=== PATIENT | female | born 1995 | race Caucasian/White ===

== ENCOUNTER → 2021-02-22 | Outpatient (CLI) | payer BC ==
--- NOTE | 2021-02-22 18:09 | Diagnostic Imaging Report ---
INDICATION: patient, survey TECHNIQUE: Multiple real-time grayscale images were obtained over the gravid uterus. COMPARISON: None FINDINGS: A single live intrauterine fetus is seen measuring 22 weeks 1 day in size by composite measurements. Sonographic EDC is 06/27/2021. The fetus is in breech presentation at this time. Amniotic fluid appears qualitatively normal. Placenta is anterior with no evidence of previa. heart rate is 144 bpm. survey showed normal-appearing kidneys and bladder and stomach. Normal appearing intracranial ventricles were seen. Four-chamber heart view appear normal. Three-vessel cord and cord insertion appear normal. Views of the spine were unremarkable. Maternal adnexa could not be visualized. Biometrical measurements are as follows: Biparietal 4.95 cm, age 21 weeks 0 days. Head circumference 19.61 cm, age 21 weeks 6 days. Abdominal circumference 17.70 cm, age 22 weeks 5 days. Femur length 3.97 cm, age 22 weeks 6 days. Sonographic estimate age: 22 weeks 1 days. Sonographic estimated date of delivery: 06/27/2021. Estimated Weight: 511 gm (+/- 75 gm). LMP percentile: 89%. heart rate: 144 beats per minute. number: 1 of 1. IMPRESSION: Single live intrauterine fetus measuring 22 weeks 1 day in size as described above. There was no detectable abnormality. Dictated by: Dictated on workstation # [id number]
== END ==
LOC: RAD 15:01
PROVIDERS: ATTEND Obstetrics & Gynecology
DX: Z34.92 Encounter for supervision of normal pregnancy, unspecified, second trimester (principal); Z3A.22 22 weeks gestation of pregnancy
CPT/HCPCS: 76805

== ENCOUNTER → 2021-05-31 | Outpatient (CLI) | payer BC ==
--- NOTE | 2021-05-31 15:34 | Diagnostic Imaging Report ---
INDICATION: Evaluate growth. TECHNIQUE: Multiple real-time grayscale images were obtained over the gravid uterus. COMPARISON: 02/22/2021. FINDINGS: There is a single live fetus in a cephalic presentation. heart rate was recorded at 146 bpm. Placenta is anterior. Amniotic fluid index is 9.1 cm. A biophysical profile was performed. Profile score is normal at 8 out of 8. Biometrical measurements are as follows: Biparietal 9.35 cm, age 38 weeks 1 days. Head circumference 33.81 cm, age 38 weeks 6 days. Abdominal circumference 33.35 cm, age 37 weeks 2 days. Femur length 7.30 cm, age 37 weeks 3 days. Sonographic estimate age: 38 weeks 0 days. Sonographic estimated date of delivery: 06/14/2021. Estimated Weight: 3241 gm (+/- 473 gm). LMP percentile: 93%. heart rate: 146 beats per minute. number: 1 of 1. IMPRESSION: Single live IUP approximately 38 weeks gestational age, +/- 3 weeks. Biophysical profile score was normal at 8 out of 8. Dictated by: Dictated on workstation # [id number]
== END ==
LOC: RAD 14:15
PROVIDERS: ATTEND Obstetrics & Gynecology
DX: O36.5939 Maternal care for other known or suspected poor fetal growth, third trimester, other fetus (principal); Z3A.38 38 weeks gestation of pregnancy
CPT/HCPCS: 76805; 76819

== ENCOUNTER 2021-06-30 02:33 | Inpatient (IN) | payer BC ==
[~2021-06-30] VITALS: Ht 177 cm; Wt 95.0 kg
--- OUTSIDE RECORDS SUMMARY | 2021-06-30 19:46 | XMS REPORT | Clinical Summary ---
Author Author [facility] Organization [facility] Address Unknown Phone Unavailable Care Team Providers Care Family Nurse Practitioner Name Role Phone Pcp, Not Found [employer] PCP Allergies Not on File Medications Not on file Active Problems Not on file Encounters Not on filefrom Last 3 Months Immunizations Not on file Social History Date Tobacco Use Types Packs/Day Years Used Never Assessed Sex Assigned at Date Recorded Not on file Last Filed Vital Signs Not on file Plan of Treatment Health Maintenance Due Date Last Done Comments Cervical Cancer: 2015 Screening Goals Not on file Implants Not on file Procedures Not on filefrom Last 3 Months Results Not on filefrom Last 3 Months Additional Health Concerns Not on file Insurance Type Payer Benefit Subscriber ID Effective Phone Address Plan / Dates Group [place] [id number] 2020-P [place] ro[place] Care Teams Start Date End Date Family Nurse Practitioner Relationship Specialty 11/06/20 Pcp, Not Found, [employer] PCP - General Family Medicine
[2021-06-30] MEDS ORDERED: LACTATED RINGERS 1,000 ML IV ONE (20:10)
[2021-06-30] MEDS ORDERED: LACTATED RINGERS 1,000 ML IV SCH (20:15)
[2021-06-30] MEDS ORDERED: ZOLPIDEM 5 MG (AMBIEN) TAB PO PRN (20:15)
[2021-06-30] MEDS ORDERED: MINERAL OIL CONCENTRATE 99.9% 15 ML UDC TOP PRN (20:15)
[2021-06-30] MEDS ORDERED: TERBUTALINE INJ 1 MG/ML (BRETHINE) AMP SC PRN (20:15)
[2021-06-30] MEDS ORDERED: LIDOCAINE/EPI 2% 1:200,00 (XYLOCAINE) 20 ML VIAL INJ PRN (20:15)
[2021-06-30 20:33] LABS: BILIRUBIN,URINE NEGATIVE (NEGATIVE); CLARITY,URINE CLEAR; COLOR,URINE YELLOW; GLUCOSE, URINE (UA) NEGATIVE (NEGATIVE); KETONES,URINE NEGATIVE (NEGATIVE); LEUKOCYTE ESTERASE ,URINE NEGATIVE (NEGATIVE); NITRITE,URINE NEGATIVE (NEGATIVE); PH,URINE 6.5 (5-9); PROTEIN,URINE NEGATIVE (NEGATIVE)
[2021-06-30 20:43] LABS: BASOPHILS # (AUTO) 0.1 10^3/uL (0.0-0.1); BASOPHILS % (AUTO) 0 % (0-10); EOSINOPHILS # (AUTO) 0.1 10^3/uL (0.0-0.3); EOSINOPHILS % (AUTO) 0 % (0-10); HEMATOCRIT 35 % (35-52); HEMOGLOBIN 11.9 g/dL (11.5-16.0); LYMPHOCYTES # (AUTO) 2.2 10^3/uL (1.0-4.0); LYMPHOCYTES % (AUTO) 13 % (12-44); MEAN CORPUSCULAR HEMOGLOBIN 30 pg (25-34); MEAN CORPUSCULAR HGB CONC 34 g/dL (32-36); MEAN CORPUSCULAR VOLUME 88 fL (80-99); MEAN PLATELET VOLUME 10.1 fL (9.0-12.2); MONOCYTES # (AUTO) 1.2 10^3/uL (0.0-1.0); MONOCYTES % (AUTO) 7 % (0-12); NEUTROPHILS % (AUTO) 78 % (42-75); PLATELET COUNT 294 10^3/uL (130-400); WHITE BLOOD COUNT 16.6 10^3/uL (4.3-11.0)
[2021-06-30 20:55] VITALS: BP 146/80
[2021-06-30] MEDS ORDERED: D5 LR IV SOLUTION 1,000 ML IV ONE (21:11)
[2021-06-30] MEDS: D5 LR IV SOLUTION 1,000 ML IV SCH (21:18)
[2021-06-30 21:40] VITALS: BP 143/82
[2021-06-30] MEDS ORDERED: CATHETER FLUSH 10 ML SYR IV SCH (22:00)
[2021-06-30 22:10] VITALS: BP 148/72
[2021-06-30 22:14] LABS: BACTERIA,URINE TRACE /HPF; WBC,URINE 0-2 /HPF
[2021-06-30 22:15] LABS: AMORPHOUS SEDIMENT,UR LARGE AMOR URATES /LPF
[2021-06-30 22:36] VITALS: BP 138/88
[2021-06-30 23:37] VITALS: BP 141/84
[2021-07-01] VITALS (42 sets, daily range): BP systolic 105–152; BP diastolic 58–97
[2021-07-01] MEDS ORDERED: fentaNYL 2 mcg/ml BUPIVA 0.125 100 ML ONE (02:01)
[2021-07-01] MEDS ORDERED: LACTATED RINGERS 1,000 ML IV ONE (02:15)
[2021-07-01] MEDS ORDERED: BUPIVACAINE 0.25% 30 ML (SENSORCAINE) VIAL ONE (02:57)
[2021-07-01] MEDS ORDERED: fentaNYL INJ 100 MCG/2 ML AMP ONE (02:57)
[2021-07-01] MEDS ORDERED: NALOXONE 0.4 MG/ML 1 ML (NARCAN) VIAL IV PRN ×2 (03:30→09:15)
[2021-07-01] MEDS ORDERED: LACTATED RINGERS 1,000 ML IV SCH (03:30)
[2021-07-01] MEDS ORDERED: diphenhydrAMINE 50 MG/ML INJ (BENADRYL) IV PRN (03:30)
[2021-07-01] MEDS ORDERED: EPIDURAL (fentaNYL 2 MCG/ML BUPIVA 0.125%)100 ML BAG EPI PRN (03:30)
[2021-07-01] MEDS ORDERED: ONDANSETRON 4 MG/2 ML (SDV) Z0FRAN IV PRN (03:30)
[2021-07-01] MEDS: D5 LR IV SOLUTION 1,000 ML IV SCH (04:34)
[2021-07-01] MEDS ORDERED: OXYTOCIN PRE-MIX DRIP 500 ML IV ONE (07:56)
[2021-07-01] MEDS: OXYTOCIN PRE-MIX DRIP 500 ML IV SCH ×2 (08:13→09:30)
[2021-07-01] MEDS ORDERED: LIDOCAINE/EPI 2% 1:200,00 (XYLOCAINE) 10 ML VIAL ONE (09:01)
[2021-07-01] MEDS ORDERED: LIDOCAINE/EPI 2% 1:200,00 (XYLOCAINE) 10 ML VIAL IJ ONE (09:04)
[2021-07-01] MEDS ORDERED: CARBOPROST (HEMABATE) 250 MCG/ML AMP IM ONE ×2 (09:07→09:15)
[2021-07-01] MEDS ORDERED: WITCH HAZEL(TUCKS) 40 EA JAR TOP PRN (09:15)
[2021-07-01] MEDS ORDERED: MEASLES,MUMPS,RUBELLA 1 EA INJ SQ ONE (09:15)
[2021-07-01] MEDS ORDERED: OXYTOCIN PRE-MIX DRIP 500 ML IV SCH (09:15)
[2021-07-01] MEDS ORDERED: BENZOCAINE/MENTHOL (DERMOPLAST) 56 ML CAN TP PRN (09:15)
[2021-07-01] MEDS ORDERED: TETANUS,DIPTH,PERTUSS P/F (BOOSTRIX) 0.5 ML VIAL IM ONE (09:15)
--- NOTE | 2021-07-01 09:21 | History & Physical-OB ---
OB - Chief Complaint & HPI Date/Time Date of Admission: Date of Admission: Jun 30, 2021 at 19:43 Date seen by a Provider: Jul 01, 2021 Time Seen by a Provider: 08:00 Chief Complaint/History OB-Reason for Admission/Chief: Induction of Labor Hx : 1 Hx Para: 0 Expected Date of Delivery: Jul 01, 2021 Gestational Age in Weeks: 39 Gestational Age in Days: 6 Indication for induction: medical complication (gestational hypertension) Admission Nurse Assessment Rev: Yes History of Labs O+/- HepBAg - HIV - GBS - Rub I VDRL NR Other The patient has had worsening blood pressures so decision was made to pursue induction of labor at 39 + weeks. She has not had severe symptoms and no proteinuria Allergies and Home Medications Allergies Coded Allergies: No Known Drug Allergies (Unverified , 06/30/21) Patient Home Medication List Home Medication List Reviewed: No Acetaminophen (Acetaminophen) 500 Mg Tablet, 1,000 MG PO Q8HR Prescribed by: LESLIE RODRIGUEZ on 07/02/21 132 Docusate Sodium (Docusate Sodium) 100 Mg Capsule, 100 MG PO BID Prescribed by: LESLIE RODRIGUEZ on 07/02/21 1327 Ferrous Sulfate (Ferosul) 325 Mg Tablet, 325 MG PO DAILY@0700 Prescribed by: LESLIE RODRIGUEZ on 07/02/21 1327 Ibuprofen (Ibu) 600 Mg Tablet, 600 MG PO Q6HR Prescribed by: LESLIE RODRIGUEZ on 07/02/21 1327 OB - History Hx of Present Care: Yes Ultrasounds: Normal mid trimester US Obstetrical Complications: Gestational Hypertension Medical Complications: None Information Induced Hypertension: Yes Maternal Gestational Diabetes: No Hemorrhage: No Obstetrical History Hx : 1 Hx Para: 0 Hx # Term Pregnancies: 0 Hx # Pregnancies: 0 Number of Living Children: 0 Patient Past Medical History NC Social History/Family History Alcohol Use: Denies Use Recreational Drug Use: No Smoking Cessation: Never smoker Immunizations Influenza Vaccine Up-to-Date: Yes; Up-to-Date Second COVID19 Vaccination: Fe Hepatitis A: Yes Hepatitis B: Yes Tetanus Booster (TDap): Less than 5yrs Rubella: immune RPR/VDRL: Negative GBS Status: Negative HBsAG: Negative OB - Admission Exam Physical Exam Vitals: Vital Signs 06/30/21 07/01/2122 20:55 03:45 06:49 Temp 36.9 Pulse 84 Resp 18 B/P (MAP) 119/69 (86) Pulse Ox 100 O2 Delivery Room Air Heart: Rhythm Normal Lungs: Clear Abdomen: Gravid Reflexes: Normal Cervical Dilatation: 1cm Effacement: 25% Station: -3 Membranes: Intact Heart Rate: 140's Accelerations: Accelerations Present Decelerations: No Decelerations Prop Worker Variability: Average (6-25) Contractions on Admission: None Labs Laboratory Tests Test 06/30/21 20:20 Range/Units White Blood Count 16.6 H 4.3-11.0 10^3/uL Red Blood Count 3.98 3.80-5.11 10^6/uL Hemoglobin 11.9 11.5-16.0 g/dL Hematocrit 35 35-52 % Mean Corpuscular Volume 88 80-99 fL Mean Corpuscular Hemoglobin 30 25-34 pg Mean Corpuscular Hemoglobin Concent 34 32-36 g/dL Red Cell Distribution Width 13.0 10.0-14.5 % Platelet Count 294 130-400 10^3/uL Mean Platelet Volume 10.1 9.0-12.2 fL Immature Granulocyte % (Auto) 1 % Neutrophils (%) (Auto) 78 H 42-75 % Lymphocytes (%) (Auto) 13 12-44 % Monocytes (%) (Auto) 7 0-12 % Eosinophils (%) (Auto) 0 0-10 % Basophils (%) (Auto) 0 0-10 % Neutrophils # (Auto) 13.0 H 1.8-7.8 10^3/uL Lymphocytes # (Auto) 2.2 1.0-4.0 10^3/uL Monocytes # (Auto) 1.2 H 0.0-1.0 10^3/uL Eosinophils # (Auto) 0.1 0.0-0.3 10^3/uL Basophils # (Auto) 0.1 0.0-0.1 10^3/uL Immature Granulocyte # (Auto) 0.1 0.0-0.1 10^3/uL Urine Color YELLOW Urine Clarity CLEAR Urine pH 6.5 5-9 Urine Specific [place] 1.025 H 1.016-1.022 Urine Protein NEGATIVE NEGATIVE Urine Glucose (UA) NEGATIVE NEGATIVE Urine Ketones NEGATIVE NEGATIVE Urine Nitrite NEGATIVE NEGATIVE Urine Bilirubin NEGATIVE NEGATIVE Urine Urobilinogen 0.2 < = 1.0 MG/DL Urine Leukocyte Esterase NEGATIVE NEGATIVE Urine RBC (Auto) TRACE-I H NEGATIVE Urine RBC NONE /HPF Urine WBC 0-2 /HPF Urine Squamous Epithelial Cells 2-5 /HPF Urine Crystals PRESENT H /LPF Urine Amorphous Sediment LARGE [place] URATES H /LPF Urine Bacteria TRACE /HPF Urine Casts NONE /LPF Urine Mucus NEGATIVE /LPF Urine Culture Indicated NO OB - Assessment/Plan/Diagnosis Assessment Assessment: induction of labor Admission Dx Gestational hypertension 39 week gestation Admission Status: Inpatient Order (span 2 midnights) ([place]) Reason for Inpatient Admission: Labor Plan Induction Method: per Misoprostol Protocol LESLIE RODRIGUEZ DO Jul 01, 2021 09:21
--- NOTE | 2021-07-01 09:21 | OB Labor & Delivery Record ---
Vag Delivery Note Vag Delivery Note Date of Delivery: 07/01/21 Preoperative Diagnosis: Ava De La Torre is a 26 /Para 1 ,Gestational Age 39 6/7 weeks, gestational hypertension Postoperative Diagnosis: Same Surgeon: LESLIE RODRIGUEZ English Tutor: Jean Caba, MS III Anesthesia: epidural, topical lidocaine Delivery Type: Findings: Viable male , apgars 9/9, weight 7#2ounces Lacerations: 1st deg and right vaginal sulcus laceration Intact placenta with 3 vessel cord. No nuchal cord, body cord or shoulder dystocia Cytotec 600 mcg placed for hemorrhage, Hemabate 250 mcg IM given Estimated Blood Loss: 700 ml Complications: None Condition: Stable Description of Procedure: The patient is a 26 year old female who presented for induction of labor. She was admitted and informed consent was obtained. Her labor course was remarkable for misoprostol x 1 then SROM. She progressed to complete dilatation and began to push. She was then set up for delivery. The infant's head was delivered atraumatically in the LILIAM position. The shoulders and remainder of the infant's body were then delivered without difficulty. Upon delivery, the head was held below the level of the perineum and the mouth and nares were bulb suctioned. The cord was doubly clamped and cut and the infant was handed off to the pediatric staff. An intact placenta with 3-vessel cord delivered via Mack and there was found to be minimal bleeding.~ Vigorous fundal massage was performed and the fundus was found to be firm. IV oxytocin was given. She continued to have vaginal bleeding and this was coming from the contracted uters. There was no cervical laceration noted. Examination of the vagina and perineum revealed a right vaginal sulcus tear and a 1st degree laceration repaired in the usual fashion with 3-0 vicryl suture. She was given pr misoprostol 600 mcg (that was all that was readily available). And then Hemabate 250 mcg. This helped to decrease the vaginal bleeding. Following the repair, sponge, instrument and needle counts were correct. Mom and baby were both in stable condition in the labor suite. Vitals - Labs Vital Signs - I&O Vital Signs Date Time Temp Pulse Resp B/P (MAP) Pulse Ox O2 Delivery O2 Flow Rate FiO2 07/01/21 06:49 84 18 119/69 (86) 07/01/21 06:34 76 18 127/68 (87) 07/01/21 06:19 76 18 127/68 (87) 07/01/21 05:35 76 18 116/66 (83) 07/01/21 05:19 75 18 119/67 (84) 07/01/21 05:05 81 18 110/66 (81) 07/01/21 04:49 71 18 110/68 (82) 07/01/21 04:33 79 18 118/70 (86) 07/01/21 04:18 79 18 110/66 (81) 07/01/21 04:03 68 18 108/63 (78) 07/01/21 03:45 84 18 109/64 (79) 100 07/01/21 03:40 86 18 105/66 (79) 99 07/01/21 03:35 90 18 116/62 (80) 100 07/01/21 03:30 83 18 121/69 (86) 100 07/01/21 03:22 83 18 119/67 (84) 99 07/01/21 03:19 75 18 134/69 (90) 99 07/01/21 03:16 103 18 143/79 (100) 99 07/01/21 03:13 72 18 140/77 (98) 98 07/01/21 03:09 107 16 152/89 (110) 98 07/01/21 03:02 107 16 152/89 (110) 98 07/01/21 02:58 107 16 148/85 (106) 99 07/01/21 02:43 60 16 149/81 (103) 07/01/21 01:32 62 16 148/67 (94) 07/01/21 00:37 48 16 139/71 (93) 06/30/21 23:37 56 16 141/84 (103) 06/30/21 22:36 54 16 138/88 (105) 06/30/21 22:10 53 16 148/72 (97) 06/30/21 21:40 52 16 143/82 (102) 06/30/21 20:55 36.9 77 16 99 Room Air I & O 07/01/21 06:59 Intake Total 3000 ml Balance 3000 ml Labs Laboratory Tests 06/30/21 20:20: White Blood Count 16.6H, Red Blood Count 3.98, Hemoglobin 11.9, Hematocrit 35, Mean Corpuscular Volume 88, Mean Corpuscular Hemoglobin 30, Mean Corpuscular Hemoglobin Concent 34, Red Cell Distribution Width 13.0, Platelet Count 294, Mean Platelet Volume 10.1, Immature Granulocyte % (Auto) 1, Neutrophils (%) (Auto) 78H, Lymphocytes (%) (Auto) 13, Monocytes (%) (Auto) 7, Eosinophils (%) (Auto) 0, Basophils (%) (Auto) 0, Neutrophils # (Auto) 13.0H, Lymphocytes # (Auto) 2.2, Monocytes # (Auto) 1.2H, Eosinophils # (Auto) 0.1, Basophils # (Auto) 0.1, Immature Granulocyte # (Auto) 0.1, Urine Color YELLOW, Urine Clarity CLEAR, Urine pH 6.5, Urine Specific [place] 1.025H, Urine Protein NEGATIVE, Urine Glucose (UA) NEGATIVE, Urine Ketones NEGATIVE, Urine Nitrite NEGATIVE, Urine Bilirubin NEGATIVE, Urine Urobilinogen 0.2, Urine Leukocyte Esterase NEGATIVE, Urine RBC (Auto) TRACE-IH, Urine RBC NONE, Urine WBC 0-2, Urine Squamous Epithelial Cells 2-5, Urine Crystals PRESENTH, Urine Amorphous Sediment LARGE [place] URATESH, Urine Bacteria TRACE, Urine Casts NONE, Urine Mucus NEGATIVE, Urine Culture Indicated NO LESLIE RODRIGUEZ DO Jul 01, 2021 09:20
[2021-07-01] MEDS: IBUPROFEN 600 MG (MOTRIN) TAB PO SCH ×3 (12:06→23:54)
[2021-07-01] MEDS ORDERED: CATHETER FLUSH 10 ML SYR IV SCH (14:00)
[2021-07-01] MEDS ORDERED: ACETAMINOPHEN 500 MG TAB (TYLENOL) PO SCH (14:00)
--- NOTE | 2021-07-01 14:44 | Anesthesia-Regional Post-Op ---
Regional Patient Condition Mental Status: Alert, Oriented x3 Circulation: Same as Pre-Op Headache: Absent Sensation: Full Recovery Motor Block: Absent Post Op Complications Complications None Follow Up Care/Instructions Patient Instructions None needed. Anesthesia/Patient Condition Patient is doing well, no complaints, stable vital signs, no apparent adverse anesthesia problems. HAYLEY PRESTON DO Jul 01, 2021 14:44
[2021-07-01] MEDS: DOCUSATE SODIUM 100 MG (COLACE) CAP PO SCH (23:54)
[2021-07-02] MEDS: IBUPROFEN 600 MG (MOTRIN) TAB PO SCH ×2 (06:05→12:40)
[2021-07-02 06:41] VITALS: BP 127/62
[2021-07-02] MEDS ORDERED: PRENATAL VITAMIN 1 EA TAB PO SCH (07:00)
[2021-07-02] MEDS ORDERED: FERROUS SULF 325 MG (IRON) TAB PO SCH (07:00)
[2021-07-02 07:48] LABS: BASOPHILS # (AUTO) 0.1 10^3/uL (0.0-0.1); BASOPHILS % (AUTO) 0 % (0-10); EOSINOPHILS # (AUTO) 0.1 10^3/uL (0.0-0.3); EOSINOPHILS % (AUTO) 0 % (0-10); HEMATOCRIT 27 % (35-52); HEMOGLOBIN 8.9 g/dL (11.5-16.0); LYMPHOCYTES % (AUTO) 13 % (12-44); MEAN CORPUSCULAR HGB CONC 33 g/dL (32-36); MEAN CORPUSCULAR VOLUME 89 fL (80-99); MEAN PLATELET VOLUME 9.8 fL (9.0-12.2); MONOCYTES # (AUTO) 1.2 10^3/uL (0.0-1.0); MONOCYTES % (AUTO) 8 % (0-12); NEUTROPHILS # (AUTO) 11.6 10^3/uL (1.8-7.8); NEUTROPHILS % (AUTO) 77 % (42-75); PLATELET COUNT 228 10^3/uL (130-400)
[2021-07-02 07:50] LABS: MEAN CORPUSCULAR HEMOGLOBIN 29 pg (25-34)
[2021-07-02] MEDS: DOCUSATE SODIUM 100 MG (COLACE) CAP PO SCH (07:57)
[2021-07-02 07:58] VITALS: BP 132/73
--- NOTE | 2021-07-02 12:18 | Progress Note ---
DEVEN DE LA TORRE 07/02/21 1218: Subjective Date Seen by a Provider: Jul 02, 2021 Time Seen by a Provider: 12:16 Subjective/Events-last exam 26yo F presents s/p vaginal delivery day 1. Patient is without complaints. Ambulating, voiding well. Regular diet. Normal lochia. Denies any fever, chills, nausea, vomiting, or diarrhea. Objective Exam Last Set of Vital Signs Vital Signs Date Time Temp Pulse Resp B/P (MAP) Pulse Ox O2 Delivery O2 Flow Rate FiO2 07/02/21 07:58 36.1 73 18 132/73 (92) 97 Room Air Capillary Refill : Less Than 3 Seconds I&O Intake and Output 07/02/21 00:00 Intake Total 3000 ml Balance 3000 ml Intake IV Total 3000 ml General: Alert, Oriented X3, Cooperative HEENT: EOMI Neck: Supple Lungs: Clear to Auscultation, Normal Air Movement Heart: Regular Rate Abdomen: Soft, No Tenderness Extremities: No Tenderness/Swelling Skin: No Rashes Neuro: Normal Speech Psych/Mental Status: Mental Status NL, Mood NL Results Lab Laboratory Tests 07/02/21 07:28: White Blood Count 15.0H, Red Blood Count 3.02L, Hemoglobin 8.9#L, Hematocrit 27L , Mean Corpuscular Volume 89, Mean Corpuscular Hemoglobin 29, Mean Corpuscular Hemoglobin Concent 33, Red Cell Distribution Width 13.3, Platelet Count 228, Mean Platelet Volume 9.8, Immature Granulocyte % (Auto) 1, Neutrophils (%) (Auto) 77H, Lymphocytes (%) (Auto) 13, Monocytes (%) (Auto) 8, Eosinophils (%) (Auto) 0, Basophils (%) (Auto) 0, Neutrophils # (Auto) 11.6H, Lymphocytes # (Auto) 2.0, Monocytes # (Auto) 1.2H, Eosinophils # (Auto) 0.1, Basophils # (Auto) 0.1, Immature Granulocyte # (Auto) 0.1 Assessment/Plan Assessment/Plan Assess & Plan/Chief Complaint Day #1 s/p vaginal delivery 07/02/2021: Routine post care Encourage ambulation Encourage breast feeding Ferrous sulfate supplementation Possible discharge today LESLIE RODRIGUEZ DO 07/05/21 2088: Supervisory-Addendum Brief Verification & Attestation Participated in pt care: history, physical Personally performed: supervision of care Care discussed with: Medical Student Procedures: n/a I have seen patient and agree with assessment and plan. DEVEN DE LA TORRE Jul 02, 2021 12:18 LESLIE RODRIGUEZ DO Jul 05, 2021 14:35
[2021-07-02] MEDS ORDERED: ACET-93 PO (13:27)
[2021-07-02] MEDS ORDERED: IBUP-844 PO (13:27)
[2021-07-02] MEDS ORDERED: FERR325T24 PO (13:27)
[2021-07-02] MEDS ORDERED: DOCU100C37 PO (13:27)
--- NOTE | 2021-07-02 13:28 | Discharge Inst-Women's Service ---
Discharge Inst-Women's Serv Depart Medication/Instructions New, Converted or Re-Newed RX: Transmitted to Pharmacy Final Diagnosis gestational hypertension acute blood loss anemia vaginal delivery Problems Reviewed?: Yes Consults/Follow Up Additional Follow Up: Yes (2 week post and 6 week ) Activity Activity: Activity as Tolerated Driving Instructions: You May Drive NO SMOKING: NO SMOKING Nothing Inside Vagina: No Douching, No [place], No Tampons Diet Discharge Diet: No Restrictions Symptoms to Report to : Bleeding Excessive, Pain Increased, Fever Over 101 Degrees F, Vaginal Bleeding Increase, Cramps in Feet or Legs, Vaginal Discharge Foul For Any Problems or Questions: Contact Your Physician LESLIE RODRIGUEZ DO Jul 02, 2021 13:28
== END 2021-07-02 16:00 | disposition home or self-care (01) | DRG 806 ==
LOC: LDRP 19:43
PROVIDERS: ADMIT Obstetrics & Gynecology; ATTEND Obstetrics & Gynecology
PROC: 10E0XZZ Delivery of Products of Conception, External Approach (ICD-10-PCS; principal; 2021-07-01)
PROC: 0HQ9XZZ Repair Perineum Skin, External Approach (ICD-10-PCS; 2021-07-01)
DX: O13.4 Gestational [pregnancy-induced] hypertension without significant proteinuria, complicating childbirth (principal); D62 Acute posthemorrhagic anemia; Z37.0 Single live birth; Z3A.49 Greater than 42 weeks gestation of pregnancy; O70.0 First degree perineal laceration during delivery; O71.89 Other specified obstetric trauma; O90.81 Anemia of the puerperium
CPT/HCPCS: 36415; 81000; 85025; 86850; 86900; 86901